=== PATIENT | male | born 1995 | race Caucasian/White ===

== ENCOUNTER 2016-06-22 | Emergency (ER) | payer SELFPAY ==
[2016-06-23 00:23] LABS: HEMOGLOBIN 14.5 gm/dl (14.0-17.5); RED BLOOD COUNT 4.71 M/UL (4.20-5.50); WHITE BLOOD COUNT 8.4 K/UL (4.5-11.0)
[2016-06-23 00:35] LABS: BUN/CREATININE RATIO 15 (0-10)
== END 2016-06-23 02:28 | disposition home or self-care (01) ==
PROVIDERS: Emergency Medicine
DX: R11.2 Nausea with vomiting, unspecified (principal); F17.200 Nicotine dependence, unspecified, uncomplicated
CPT/HCPCS: 36415; 80053; 81001; 83690; 85025; 85610; 85730; 87086; 99284